=== PATIENT | female | born 1965 | race Caucasian/White ===

== ENCOUNTER → 2023-07-02 | Outpatient (CLI) | payer OTHER, SELFPAY ==
--- NOTE | 2023-07-02 11:08 | RAD_ITS ---
STUDY: X-RAY - RIGHT WRIST REASON FOR EXAM: Female, 58 years old. RIGHT WRIST PAIN TECHNIQUE: 3 view(s) of the wrist were obtained. COMPARISON: None. FINDINGS: Normal visualized distal radius and ulna. Normal radiocarpal articulation. Normal distal radioulnar articulation. Normal carpal bones. Normal carpal articulations. Normal carpometacarpal articulation of the thumb. Normal second through fifth carpometacarpal articulations. Normal visualized metacarpal bones. The soft tissue structures are unremarkable. RAD/Wrist min 3 Views IMPRESSION: Normal x-ray examination of the wrist. Electronically Signed: Rayshawn Magaña MD at 12:25 EDT ,
--- NOTE | 2023-07-02 11:08 | RAD_ITS ---
STUDY: X-RAY - RIGHT HAND REASON FOR EXAM: Female, 58 years old. RIGHT HAND PAIN TECHNIQUE: 3 view(s) of the hand. COMPARISON: None. FINDINGS: Normal radiocarpal articulation. Normal distal radioulnar joint. Normal visualized carpal bones. Normal carpal articulations Normal carpometacarpal articulation of the thumb. Normal second through fifth carpometacarpal joints. Normal metacarpi. Normal metacarpophalangeal joint of the thumb. Normal interphalangeal joint of the thumb. Normal proximal and distal phalanges of the thumb. Normal metacarpophalangeal joints of the second through fifth fingers. Normal proximal and distal interphalangeal joints of the second through fifth fingers. Normal phalanges of the second through fifth fingers. The soft tissue structures are unremarkable. RAD/Hand Min 3 Views IMPRESSION: Normal x-ray examination of the hand. Electronically Signed: Rayshawn Magaña MD at 12:24 EDT ,
[2023-07-02 11:14] LABS: Hematocrit 48.1 % (37-47); Hemoglobin 14.6 g/dL (12.0-15.0); Mean Corp Hgb Conc 30.4 g/dL (32-36); Mean Corpuscular Hgb 23.9 pg (27.0-32.0); Mean Corpuscular Volume 78.7 fL (81-99); Mean Platelet Vol. 10.8 fl (6.2-12.0); Platelet Count 285 K/mm3 (150-450); RBC Distribution Width CV 15.9 % (11.6-14.6); RBC Distribution Width SD 44.5 fl (35.1-43.9); Red Blood Count 6.11 M/mm3 (4.2-5.4); White Blood Count 7.3 K/mm3 (4.4-11.0)
[2023-07-02 11:54] LABS: ALB/GLOB Ratio 0.9 RATIO (0.9-2.4); AST(SGOT) 30 U/L (15-37); Alanine Aminotransfer ALT/SGPT 33 U/L (13-56); Albumin, Serum 3.8 g/dL (3.2-5.0); Alkaline Phosphatase 138 U/L (45-117); Anion Gap 4 (5-15); BUN 16 mg/dL (7-18); BUN/Creat Ratio 15.7 RATIO (10-20); Calcium,Total 9.2 mg/dL (8.5-10.1); Chloride 111 mmol/L (98-107); Cholesterol 145 mg/dL (200); Creatinine, Serum 1.02 mg/dL (0.55-1.02); EST Glomerular Filtration Rate 60 mL/min (>60); Est Glom Filt Rate - Afr Amer 72 mL/min (>60); Free T3 2.7 pg/mL (2.18-3.98); Globulin 4.1 g/dL (2.2-4.2); Glucose 122 mg/dL (74-106); High Density Lipoprotein 53 mg/dL; Potassium 4.1 mmol/L (3.5-5.1); Protein, Total 7.9 g/dL (6.4-8.2); Sodium Level 140 mmol/L (136-145); T4 Free Direct 1.21 ng/dL (0.76-1.46); Thyroid Stim Hormone (TSH) 1.83 uIU/mL (0.358-3.74); Triglycerides 69 mg/dL; Very Low Density Lipoprotein 14 mg/dL (5-40)
== END | disposition home or self-care (01) ==
LOC: LAB 10:43
PROVIDERS: PCP Family Medicine; Referring Provider Registered Nurse; Visit Provider Registered Nurse
DX: Z13.0 Encounter for screening for diseases of the blood and blood-forming organs and certain disorders involving the immune mechanism (principal); E66.01 Morbid (severe) obesity due to excess calories; Z68.41 Body mass index [BMI] 40.0-44.9, adult; Z13.1 Encounter for screening for diabetes mellitus; Z13.220 Encounter for screening for lipoid disorders; K21.9 Gastro-esophageal reflux disease without esophagitis; G47.33 Obstructive sleep apnea (adult) (pediatric); F41.9 Anxiety disorder, unspecified; M25.531 Pain in right wrist; M79.641 Pain in right hand; M79.89 Other specified soft tissue disorders; R73.03 Prediabetes
CPT/HCPCS: 36415; 73110; 73130; 80053; 80061; 83036; 84439; 84443; 84481; 85027

== ENCOUNTER → 2024-05-22 | Outpatient (CLI) | payer OTHER, SELFPAY ==
--- NOTE | 2024-05-22 17:00 | RAD_ITS ---
PROCEDURE: CERV SPINE 4 OR 5 VIEWS REASON FOR EXAM: Neck pain, left radiating TECHNIQUE: 5 views of the cervical spine. AP, lateral, bilateral oblique and open-mouth odontoid COMPARISON: None. FINDINGS: The cervical spine is visualized from the skull base to the bottom of C7 on the lateral view. Reversal of the normal lordosis. No fracture or malalignment. No prevertebral soft tissue swelling appreciated. C4-5: Moderate to severe appearing disc space narrowing with large anterior osteophyte formation. C5-6: Moderate to severe appearing disc space narrowing with small to moderate anterior osteophyte formation. Appearance of posterior corner spurring of the superior corner of C6. C6-7: [id number] disc space narrowing with small anterior osteophyte formation. The oblique images are not completely in line with the neural foramen in the lower cervical spine limiting the evaluation. There appears to be bilateral uncovertebral hypertrophic change and possible associated foraminal narrowing C5-6 and C6-7. The visualized apices appear clear. RAD/Cerv Spine 4 or 5 Views IMPRESSION: Multilevel cervical spondylosis as described above.. Reading Location: [id number]
== END | disposition home or self-care (01) ==
LOC: RAD 16:49
PROVIDERS: PCP Family Medicine; Referring Provider Nurse Practitioner Family; Visit Provider Nurse Practitioner Family
DX: M54.12 Radiculopathy, cervical region (principal)
CPT/HCPCS: 72050

== ENCOUNTER 2024-06-25 18:00 | Outpatient (RCR) | payer OTHER, SELFPAY ==
--- NOTE | 2024-06-04 19:10 | HP.PTEVAL ---
Patient's Visit Information Visit Information Visit Information: HOLDEN STOCK is a 59 year old F referred to Physical Therapy by NAIF Heath with a diagnosis of CERVICAL RADICULOPATHY. Date of Evaluation: 06/04/24 Physical Therapist: Vicky Starks PT, Cert MDT Visit Plan Frequency: 2-3x /Week Duration: 4-6 Weeks Plan: 1. SOFT TISSUE MOBILIZATION TO POSTERIOR CERVICAL MUSCULATURE TO DECREASE TIGHTNESS AND RELEASE TRIGGER POINTS. 2. ULTRASOUND AT 1.5 W/CM2 X 8-10 MIN TO POSTERIOR CERVICAL MUSCULATURE. 3. MH OR CP TO NECK AND L SHLD NEEDED. 4. CERVICAL SUBMAX ISOMETRICS ALL PLANES 5. SCAPULAR STABILIZATION/STRENGTHENING. 6. L UE ROM AND STRENGTHENING. 6. HEP INSTRUCTION. 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 ON PHONE A LITTLE BIT USING A HEADSET. 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 Present symptoms: CONSTANT CENTRAL NECK PAIN WITH INTERMITTENT SHARP PAIN. CONSTANT L UE SX'S. LEFT UE PAIN, NUMBNESS AND TINGLING TO FINGERS (ALSO IN SHOULDER BLADE). LEFT UE WEAKNESS AND SHAKY. FEELING TIGHTNESS IN R BICEP BUT OTHERWISE NO R UE SX'S. I WANT TO GET A GOOD NIGHT SLEEP. I HAVEN'T HAD ONE IN WEEKS. MY ARM CONCERNS ME. Present since: ~ [id number] Getting Better, Getting Worse or Staying the Same: STAYING THE SAME Pain Scale: Worst - 8/10 Least - 5/10 Currently: 5/10 Commenced as a result of: LIFTING GRANDSON Symptoms at onset: SHOOTING PAIN IN L UE. REACHED BACK WITH L UE AND PICKED HIM UP AND SWUNG HIM AROUND IN FRONT OF HER. Worse: LIFTING, TURNING HEAD TO LEFT, LAYING DOWN, SITTING UP WITHOUT HEAD SUPPORT, TOUCHING ELBOW DUE TO TENDERNESS Better: SITTING WITH HEAD AND L UE SUPPORT IS BETTER THAN LYING DOWN. HEATING PAD AROUND NECK. MASSAGE OF NECK MUSCLES AND PRESSURE ON SPINE FEEL GOOD Disturbed sleep: YES Previous history/Previous treatment: H/O CHIROPRACTIC FOR NECK PAIN STARTING ABOUT 5-6 YEARS AGO FOR NECK AND R UE SX'S - CAN'T REMEMBER WHAT HALI IT ON. H/O MULTIPLE REAR END COLLISIONS. HAS GONE OFF AND ON TO CHIROPRACTOR NEEDED. HAS ALSO GONE TO CHIROPRACTOR FOR LOW BACK. DENIES NECK OR SHLD SURGERIES OR INJECTIONS. This episode: MUSCLE RELAXER - NO EFFECT, TORADOL - TAKES THE EDGE OFF, TYLONOL - TAKES THE EDGE OFF. Dizziness: YES - ONCE A DAY - PATIENT RELATES IT TO TAKING ADAPEX Tinnitus: YES - CHRONIC AND HAS NOT CHANGED SINCE THIS RECENT INJURY Nausea: YES - CHRONIC AND UNCHANGED Shortness of Breath: NO Difficulty Swallowing: NO Gait: NORMAL Unexplained weight loss: NO Imagin05/22/24: PROCEDURE: CERV SPINE 4 OR 5 VIEWS REASON FOR EXAM: Neck pain, left radiating TECHNIQUE: 5 views of the cervical spine. AP, lateral, bilateral oblique and open-mouth odontoid COMPARISON: None. FINDINGS: The cervical spine is visualized from the skull base to the bottom of C7 on the lateral view. Reversal of the normal lordosis. No fracture or malalignment. No prevertebral soft tissue swelling appreciated. C4-5: Moderate to severe appearing disc space narrowing with large anterior osteophyte formation. C5-6: Moderate to severe appearing disc space narrowing with small to moderate anterior osteophyte formation. Appearance of posterior corner spurring of the superior corner of C6. C6-7: [id number]-mc-orybepge disc space narrowing with small anterior osteophyte formation. The oblique images are not completely in line with the neural foramen in the lower cervical spine limiting the evaluation. There appears to be bilateral uncovertebral hypertrophic change and possible associated foraminal narrowing C5-6 and C6-7. The visualized apices appear clear. RAD/Cerv Spine 4 or 5 Views IMPRESSION: Multilevel cervical spondylosis as described above.. PMH/Recent major surgery: ANXIETY, DESTIN CARPAL TUNNEL. Objective Objective: Sitting Posture/Standing Posture: FH. ROUNDED SHLD'S. NO TORTICOLLIS. VERY SLOUCHED IN SITTING WITH BUTTOCKS SLID FORWARD IN SEAT. Active Correction of posture: BETTER - REDUCES C/O NECK PAIN - NE ON UE SX'S AT FIRST BUT THEN PARTIALLY DECREASES. Other Observations: INDEP GAIT AND TRANSFERS. Sensory deficit: ALTERED SENSATION L UE ROM deficit: AROM L SHLD FLEX 145, ABD 127 DEG, ER 73 DEG, IR TO SMALL OF BACK. (PAIN WITH FLEX AND ABD TESTING). FULL L ELBOW, WRIST AND HAND AROM. R SHLD FLEX 150 DEG, ABD - FULL, ER - FULL, IR - FULL. ELBOW, WRIST AND HAND - FULL. Motor deficit: L SHLD 3-/5, ELBOW 4-/5. R SHLD 4-/5, ELBOW 5/5. 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 Reflexes: 2 + DESTIN UE'S Dural Signs: POSITIVE L UE. Cervical Mvmt Loss: Flex: NIL - NE Pro: NIL - NE Ext: MOD - INCREASES NECK AND L UE - W Ret: CHARLIE - INCREASES NECK AND L UE - W RSB: MIN - NE LSB: MOD - INCREASES NECK AND L UE - W R Rot: NIL - NE L Rot: MOD - INCREASES NECK AND L UE - W Postural strength: POOR Palpation: HYPERSENSTIVITY AND TENDERNESS L ELBOW AND FOREARM REGIONS. Balance/Special Test Scores Oswestry Neck Score: 22 Goals Goal 1:: DECREASE C/O NECK AND UE SX'S BY AT LEAST 50% TO EASE ADL'S. Goal Time Frame: 4-6 Weeks Goal 2:: IMPROVE LIFTING, READING, SLEEP, DRIVING AND RECREATIONAL FUNCTION WITH AT LEAST A 5 POINT IMPROVEMENT IN NECK OSWESTRY SCORE. Goal Time Frame: 4-6 Weeks Goal 3:: INSTRUCT IN PROPHYLAXIS Goal Time Frame: 4-6 Weeks Rehabilitation Potential Physical Therapy Diagnosis: NECK AND L UE WEAKNESS AND STIFFNESS Rehabilitation Potential: Good Anticipated Interventions Patient/Client Instruction: Educate patient on: Condition, Plan of Care and Risk Factors For the Purpose of:: To improve self management Therapeutic Exercise to Include: Strength training, Postural training, Flexibilty training, Neuromotor development and Scapular Strength/Stabilization For the Purpose of:: To decrease pain, To increase ROM, To improve muscle performance and motor function, To increase tolerance to activity/condition/position, To improve ability of physical actions for home/community/work/leisure, To increase flexibility/ROM and To improve self management Manual Therapy Techniques to Include: Trigger point massage and Soft tissue mobilization For the Purpose of:: To decrease pain and To improve nutrient delivery to tissue Cryotherapy (ice pack, ice massage): Yes Thermo therapy (hot pack): Yes Ultrasound (thermal/non thermal): Yes For the Purpose of:: To decrease pain, To decrease swelling/inflammation and To improve nutrient delivery to tissue Text: Thank you for the opportunity to evaluate your patient. For Medicare and Medicare HMO plans, please review the plan of care and approve it. It will need to be FAXED BACK to us at [phone] for Medicare purposes. For Medicare only, by signing this I certify the plan of care. Please let me know if there are questions or concerns regarding this plan of care. Physician Signature: Date:
--- NOTE | 2024-06-25 19:12 | HP.PTREVAL ---
Re-Evaluation Intro: Brenda Bedolla, ESPINOZA-C, It has been my pleasure to treat HOLDEN STOCK over the last 7 visits for CERVICAL RADICULOPATHY. Please see the progress note below for an update on the physical therapy plan of care! Subjective Subjective: PATIENT REPORTS SHE CAN WALK WITH HER ARM DOWN NOW, HER NECK FEELS BETTER, HER ARM FEELS BETTER, HER SHOULDER FEELS BETTER, I AM SLEEPING LONGER AND I'M NOT TAKING MANY TYLONOL. 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 SHE REPORTS IT IS STILL SORE IN HER ELBOW AND FOREARM. C/O THUMB AND INDEX FINGER INTERMITTENT & TINGLING FROM ELBOW DOWN INTO MAINLY INDEX AND THUMB ALONG WITH L HAND WEAKNESS WITH TRANSFORMER COIL WINDER. F/U PENDING WITH ORTHO TUESDAY. REPORTS COMPLIANCE WITH NEW HOME ISOMETRICS WITHOUT INCREASED SX'D BUT TEMPORARY INCREASED PAIN AFTER EX'S LAST SESSION. ALSO REPORTS INCREASED NECK AND L UE PAIN WITH DOING HOME LEG EX'S YESTERDAY FOR TRYING TO LOSE WEIGHT. Objective Objective/Function: PATIENT WAS SEEN TODAY FOR RE-ASSESSMENT OF PROGRESS TOWARD THE SET PT GOALS AND THE NEED FOR FURTHER PHYSICAL THERAPY VS READINESS FOR DISCHARGE. OVER ALL THIS PATIENT IS SHOWING IMPROVEMENT IN NECK AND L UE ROM, L UE STRENGTH AND C/O'S OF PAIN BUT STILL HAS SIGNIFICANT NECK AND L UE SX'S. PATIENT MAY BENEFIT FROM FURTHER IMAGING/MRI. UPON EXAM TODAY: Sensory deficit: ALTERED SENSATION ENTIRE L UE INCLUDING HAND COMPARED TO R WITH LIGHT TOUCH SENSATION TESTING. ROM deficit: AROM L SHLD FLEX 155, ABD 147 DEG, ER 73 DEG, IR TO BRA LINE (PATIENT DENIED INCREASED PAIN WITH FLEX AND ABD TESTING BUT C/O MILD L NECK AND MOD INCREASED L UE PAIN AFTER TESTING ). FULL L ELBOW, WRIST AND HAND AROM. Motor deficit: L SHLD 3+/5, ELBOW 4-/5. R SHLD 4/5, ELBOW 5/5. R TRANSFORMER COIL WINDER STRENGTH 64 LBS, L 50 LBS. Reflexes: UNABLE TO ELICIT DESTIN UE DTR'S Dural Signs: POSITIVE L UE. Cervical Mvmt Loss: Flex: NIL - NE Pro: NIL - NE Ext: MOD - INCREASES NECK AND L UE - W Ret: CHARLIE BUT MORE MVMT THAN AT EVAL- INCREASES NECK PAIN BUT NE ON L UE. RSB: MIN - NE LSB: NIL - INCREASES NECK AND L UE - NW R Rot: NIL - NE L Rot: MOD - INCREASES NECK AND L UE - NW Postural strength: FAIR Palpation: HYPERSENSTIVITY AND TENDERNESS L ELBOW AND FOREARM REGIONS. Plan Plan Plan: HOLD PT UNTIL PHYSICIAN RE-CHECK PENDING TUESDAY. PATIENT AGREEABLE. Balance/Gait/Functional tests Balance/Special Test Scores Oswestry Neck Score: 14 Goals Goals Goal 1:: DECREASE C/O NECK AND UE SX'S BY AT LEAST 50% TO EASE ADL'S. Goal Time Frame: 4-6 Weeks Goal Progress: Goal Met Goal 2:: IMPROVE LIFTING, READING, SLEEP, DRIVING AND RECREATIONAL FUNCTION WITH AT LEAST A 5 POINT IMPROVEMENT IN NECK OSWESTRY SCORE. Goal Time Frame: 4-6 Weeks Goal Progress: Goal Met Goal 3:: INSTRUCT IN PROPHYLAXIS Goal Time Frame: 4-6 Weeks Goal Progress: Progressing Anticipated Interventions Anticipated Interventions Patient/Client Instruction: Educate patient on: Condition, Plan of Care and Risk Factors For the Purpose of:: To improve self management Therapeutic Exercise to Include: Strength training, Postural training, Flexibilty training, Neuromotor development and Scapular Strength/Stabilization For the Purpose of:: To decrease pain, To increase ROM, To improve muscle performance and motor function, To increase tolerance to activity/condition/position, To improve ability of physical actions for home/community/work/leisure, To increase flexibility/ROM and To improve self management Manual Therapy Techniques to Include: Trigger point massage and Soft tissue mobilization For the Purpose of:: To decrease pain and To improve nutrient delivery to tissue Cryotherapy (ice pack, ice massage): Yes Thermo therapy (hot pack): Yes Ultrasound (thermal/non thermal): Yes For the Purpose of:: To decrease pain, To decrease swelling/inflammation and To improve nutrient delivery to tissue Re-Evaluation Ending Re-evaluation ending: Please do not hesitate to contact me at [phone] by phone or if you have questions or concerns regarding this new plan of care! Sincerely, Vicky Starks, PT, Cert MDT
== END 2024-06-25 19:00 | disposition home or self-care (01) ==
LOC: PT 18:00
PROVIDERS: PCP Family Medicine; Referring Provider Nurse Practitioner Family; Visit Provider Nurse Practitioner Family
DX: M54.12 Radiculopathy, cervical region (principal)
CPT/HCPCS: 97035; 97110; 97140; 97162; 97530

== ENCOUNTER → 2024-08-11 | Outpatient (CLI) | payer OTHER, SELFPAY ==
--- NOTE | 2024-08-11 10:15 | MRI_ITS ---
PROCEDURE: SPINE CERVICAL (ROUTINE) 08/11/2024 REASON FOR EXAM: CERVICAL RADICULOPATHY WITH MYELOPATHY TECHNIQUE: Multiplanar and multisequence images were obtained without IV contrast administration. COMPARISON: May 22, 2024 x-ray FINDINGS: There is loss of the lordosis. There is grade 1 spondylolisthesis at C3-4, 0.2 cm. There is grade 1 retrolisthesis at C6-7, 0.3 cm. Vertebral body height is maintained. Cervical vertebral body marrow signal is normal. The intervertebral disc signal shows desiccation. The facet articulations are aligned. C2-C3: There is no significant disc protrusion. There is no lateral recess or foraminal stenosis. There is no central canal stenosis. C3-C4: There is moderate central and right paracentral disc and osteophyte protrusion. There is moderate right lateral recess stenosis. There is mild right foraminal narrowing secondary to disc protrusion and facet hypertrophy. There is mild central canal stenosis. C4-C5: There is disc extrusion which extends beyond the C4 endplate, attached at the margin, measuring 0.3 x 0.6 by 1.0 cm. There is mild left lateral recess effacement. There is mild bilateral foraminal narrowing secondary to disc protrusion and facet hypertrophy. There is moderate central canal stenosis. C5-C6: There is moderate central, moderate right and mild left paracentral disc and osteophyte protrusion. There is moderate right and mild left lateral recess stenosis. There is moderate right foraminal narrowing secondary to disc and osteophyte protrusion. There is moderate central canal stenosis. C6-C7: There is moderate central, moderate right and mild left paracentral disc and osteophyte protrusion. There is severe right and moderate left lateral recess stenosis. There is severe right and moderate left foraminal narrowing secondary to disc and osteophyte protrusion. There is moderate central canal stenosis, partly secondary to ligamentous hypertrophy. C7-T1: There is no significant disc protrusion. There is no lateral recess or foraminal stenosis. There is no central canal stenosis. The visualized cord shows mild atrophy from C3-7. A hemangioma is partly visible at T4. MRI/Spine Cervical (Routine) IMPRESSION: There is loss of the lordosis. There is grade 1 spondylolisthesis at C3-4, 0.2 cm. There is grade 1 retrolist hesis at C6-7, 0.3 cm. The visualized cord shows mild atrophy from C3-7. There is disc extrusion at C4-5. There is mild central canal stenosis at C3-4, moderate central canal stenosis a t C4-5, C5-6, and C6-7, with lateral recess and foraminal narrowing. Reading Location: [facility]
== END | disposition home or self-care (01) ==
LOC: MRI 09:31
PROVIDERS: PCP Family Medicine; Referring Provider Nurse Practitioner Family; Visit Provider Nurse Practitioner Family
DX: M54.12 Radiculopathy, cervical region (principal); G95.9 Disease of spinal cord, unspecified
CPT/HCPCS: 72141